=== PATIENT | female | born 1970 | race Caucasian/White ===

== ENCOUNTER 2018-08-28 22:29 | Emergency (ER) | payer MEDICAID, OTHER ==
[2018-08-28 22:36] VITALS: BP 116/52
[2018-08-28] MEDS ORDERED: predniSONE 20 MG TABLET PO STA (23:08)
--- NOTE | 2018-08-28 23:14 | ED Physician Documentation ---
PD HPI SKIN - Stated complaint Stated Complaint: RASH - Chief complaint Chief Complaint: Wound - History obtained from History obtained from: Patient - History of Present Illness Timing - onset: How many weeks ago (1) Timing - duration: Weeks (1) Timing - details: Gradual onset, Still present Location: Bodywide Quality / character: Itchy, Discolored, Raised Improved by: Benadryl Associated symptoms: No: Fever, Myalgias, Joint pain, Headache, Facial swelling, Dyspnea, N/V/D Contributing factors: Other (exposed to scabies) Similar symptoms before: Diagnosis (scabies) Recently seen: Clinic - Additional information Additional information: 48-year-old female who contracted scabies from a homeless family that they allowed to camp in their yard has been treated with permethrin and despite the treatment she has had progression of the inflammatory response and she is quite uncomfortable with this. She treated 3 days ago and has had progression of symptoms.She does state that the antihistamine she is taking does appear to help some. Review of Systems Constitutional: denies: Fever Eyes: denies: Decreased vision Ears: denies: Ear pain Nose: denies: Congestion Throat: denies: Sore throat Cardiac: denies: Chest pain / pressure, Palpitations Respiratory: denies: Dyspnea, Cough GI: denies: Abdominal Pain, Nausea, Vomiting : denies: Dysuria, Frequency Skin: reports: Rash Musculoskeletal: denies: Neck pain, Back pain, Extremity pain PD PAST MEDICAL HISTORY - Present Medications Home Medications: Ambulatory Orders Medication Instructions Recorded Confirmed Ivermectin 15 mg PO ONCE #5 tablet 08/28/18 Topical Cream 08/28/18 predniSONE [Deltasone] 10 mg PO ONCE #26 tablet 08/28/18 - Allergies Allergies/Adverse Reactions: Allergies Allergy/AdvReac Type Severity Reaction Status Date / Time No Known Drug Allergies Allergy Verified 08/28/18 22:35 PD ED PE NORMAL - Vitals Vital signs reviewed: Yes (normal ) - General General: Alert and oriented X 3, No acute distress - HEENT HEENT: Atraumatic, PERRL, EOMI - Neck Neck: Supple, no meningeal sign - Respiratory Respiratory: No respiratory distress - Derm Derm: Normal color, Warm and dry, Other (There is a fine erthematous rash very non-discript but consistent with scabies infestation that is present over the back chest and extremities. It appears to spare the face. There is excessive confluent erythema to the anterior chest up to the neck. 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 She is administered prednisone we will place her on a course of prednisone and give her a dose of ivermectin. Her rash does appear consistent with scabies. Departure - Departure Disposition: 01 Home, Self Care Clinical Impression: Scabies Instructions: ED Scabies Follow-Up: Your, doctor [Other] Prescriptions: Ivermectin 15 mg PO ONCE #5 tablet predniSONE [Deltasone] 10 mg PO ONCE #26 tablet Discharge Date/Time: 08/28/18 23:23
== END 2018-08-28 23:23 | disposition home or self-care (01) ==
LOC: ED 22:29
DX: B86 Scabies (principal)
CPT/HCPCS: 99283; 99284; J7512

== ENCOUNTER 2019-04-13 10:57 | Emergency (ER) | payer OTHER ==
[2019-04-13 11:05] VITALS: BP 113/77
--- NOTE | 2019-04-13 12:24 | XRAY Report ---
Reason: shoulder inj Procedure Date: 04/13/2019 Accession Number: [id number] / [id number] Procedure: XR - Shoulder 3 View RT CPT Code: Final Report FULL RESULT: EXAM: RIGHT SHOULDER RADIOGRAPHY EXAM DATE: 04/13/2019 12:17 PM. CLINICAL HISTORY: Shoulder inj. COMPARISON: None. TECHNIQUE: 3 views. FINDINGS: Bones: Normal. No fracture or bone lesion. Joints: The glenohumeral and acromioclavicular joints are normal in alignment. Moderate AC joint with osteophytes. Soft tissues: The visualized hemithorax is unremarkable. No soft tissue swelling. IMPRESSION: 1. No evidence for acute fracture or dislocation of the right shoulder. 2. Moderate AC joint arthritis. RADIA
[2019-04-13] MEDS ORDERED: predniSONE 20 MG TABLET PO STA (12:43)
[2019-04-13] MEDS ORDERED: CYCLOBENZAPRINE 10 MG TABLET PO STA (12:43)
--- NOTE | 2019-04-13 12:45 | ED Physician Documentation ---
PD HPI UPPER EXT INJURY - Stated complaint Stated Complaint: R SHOULDER PX - Chief complaint Chief Complaint: Ext Problem - History obtained from History obtained from: Patient (This is a 49-year-old woman without significant past medical history who about a week ago started to develop some right-sided shoulder and neck pain. Over the last few days it is gotten worse. There is no specific motion that makes it worse but even going over bumps in the car makes it worse. She denies any specific injury. Her is a chiropractor who tried to adjust her which was not helpful. She is also had some numbness towards the ulnar side of the hand. No history of radiculopathy. No fevers or chills. No weakness. The pain radiates from the shoulder down into the tricep area and even the forearm dorsally.) Review of Systems Constitutional: reports: Reviewed and negative Cardiac: reports: Reviewed and negative Respiratory: reports: Reviewed and negative PD PAST MEDICAL HISTORY - Past Surgical History Past Surgical History: No - Present Medications Home Medications: Ambulatory Orders Medication Instructions Recorded Confirmed Ivermectin 15 mg PO ONCE #5 tablet 08/28/18 Topical Cream 08/28/18 predniSONE [Deltasone] 10 mg PO ONCE #26 tablet 08/28/18 Cyclobenzaprine [Flexeril] 10 mg PO TID PRN #20 tablet 04/13/19 predniSONE [Deltasone] 20 mg PO [id number] #21 tab 04/13/19 - Allergies Allergies/Adverse Reactions: Allergies Allergy/AdvReac Type Severity Reaction Status Date / Time No Known Drug Allergies Allergy Verified 08/28/18 22:35 - Social History Does the pt smoke?: No Smoking Status: Never smoker Does the pt drink ETOH?: Yes Does the pt have substance abuse?: No - Immunizations Immunizations are current?: No Immunizations: TDAP >10years/unknown - POLST Patient has POLST: No PD ED PE NORMAL - Vitals Vital signs reviewed: Yes - General General: Alert and oriented X 3, No acute distress - Neck Neck: Supple, no meningeal sign, No bony TTP - Extremities Extremities: Other (The shoulder and neck are nontender. She has some limited range of motion of the shoulder only able to abduct to about 90 degrees no further. She has mildly decreased interosseous strength on the right compared to the left. Otherwise washer blanket strength, flexion extension at the wrist and thumb extension are symmetric.) - Neuro Neuro: Alert and oriented X 3, Normal speech Results - Vitals Vitals: Vital Signs - 24 hr 04/13/19 11:03 Temperature 36.9 C Heart Rate 65 Respiratory 18 Rate Blood Pressure 113/77 O2 Saturation 98 Oxygen O2 Source Room air PD MEDICAL DECISION MAKING - ED course ED course: This is a 49-year-old woman who has what appears to be a cervical radiculopathy causing shoulder pain. 3 views of the right shoulder x-ray interpreted contemporaneously by me shows no acute disease and some AC joint arthritis which I do not think is causative at this juncture. Departure - Departure Disposition: 01 Home, Self Care Clinical Impression: Cervical radiculopathy Condition: Good Record reviewed to determine appropriate education?: Yes Instructions: ED Cervical Radiculopathy Prescriptions: Cyclobenzaprine [Flexeril] 10 mg PO TID PRN #20 tablet PRN Reason: Spasms predniSONE [Deltasone] 20 mg PO [id number] #21 tab Comments: Return for new or worsening symptoms. Follow-up with your doctor early next week for reevaluation
== END 2019-04-13 12:55 | disposition home or self-care (01) ==
LOC: ED 10:57
DX: M54.12 Radiculopathy, cervical region (principal)
CPT/HCPCS: 73030; 99283; A9270; J7512

== ENCOUNTER 2019-04-20 09:39 | Outpatient (CLI) | payer OTHER | END 2019-04-20 09:40 | disposition EMS.NT | LOC: EMS 09:39 | PROVIDERS: ATTEND Surgery | DX: M54.9 Dorsalgia, unspecified (principal); M25.511 Pain in right shoulder ==

== ENCOUNTER 2019-04-20 10:31 | Emergency (ER) | payer OTHER ==
--- NOTE | 2019-04-20 12:04 | ED Physician Documentation ---
PD HPI BACK PAIN - Stated complaint Stated Complaint: RT NECK/ARM PX & NUMBNESS - Chief complaint Chief Complaint: Back Pain - History obtained from History obtained from: Patient, Family () - History of Present Illness Timing - onset: Other (This 49-year-old female returns to the ER today after being seen last week for the same.She has continued right-sided shoulder and neck pain that developed about a week and a half ago while she states that she started swimming with her children and was taking some garbage out to the trash can when the pain developed she was seen in the ED last week and given Flexeril and a course of tapering prednisone she has taken the prednisone but has not taken the Flexeril faithfully.She did not denies any specific motion or movement makes the pain worse she was doing okay until this morning she woke up and the pain was severe to the point that she did not go to her primary care appointment but instead took a Flexeril and take some ibuprofen today which seems now to make the pain a little bit better.She continues to complain of some numbness toward the ulnar side of her hand digits 3 4 and 5 she has no history of radiculopathy she denies fevers chills weakness pain continues to radiate from her scapular area down into her triceps area.) Review of Systems Constitutional: reports: Reviewed and negative. denies: Chills Cardiac: reports: Reviewed and negative Respiratory: reports: Reviewed and negative Musculoskeletal: reports: Neck pain PD PAST MEDICAL HISTORY - Past Surgical History Past Surgical History: No - Present Medications Home Medications: Ambulatory Orders Medication Instructions Recorded Confirmed predniSONE [Deltasone] 10 mg PO ONCE #26 tablet 08/28/18 Cyclobenzaprine [Flexeril] 10 mg PO TID PRN #20 tablet 04/13/19 predniSONE [Deltasone] 20 mg PO [id number] #21 tab 04/13/19 - Allergies Allergies/Adverse Reactions: Allergies Allergy/AdvReac Type Severity Reaction Status Date / Time No Known Drug Allergies Allergy Verified 04/20/19 10:51 - Social History Does the pt smoke?: No Smoking Status: Never smoker Does the pt drink ETOH?: Yes Does the pt have substance abuse?: No - Immunizations Immunizations are current?: No Immunizations: TDAP >10years/unknown - POLST Patient has POLST: No PD ED PE NORMAL - General General: Alert and oriented X 3 - Extremities Extremities: Other (Patient has some tender this to the right rhomboid right trapezium area without radiation down into the arm she has limited range of motion for flexion to about 90degrees mildly decreased strength in the right,with increasing pain she stops movement 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 She seems to be improving after taking her Flexeril and Advil this morning.) Departure - Departure Disposition: 01 Home, Self Care Clinical Impression: Pain, Cervical radiculopathy Condition: Good Plan of Treatment: patient to follow up with her PCP this week as previously discussed for reevaluation. Discussed with your PCP about MRI of the cervical thoracic region. She is encouraged to use NSAID's (Advil/ aleve/ IBP) daily, and use the flexeril at bedtime. Instructions: ED Neck Back Pain General Discharge Date/Time: 04/20/19 12:36
[2019-04-20 12:35] VITALS: BP 114/62
== END 2019-04-20 12:36 | disposition home or self-care (01) ==
LOC: ED 10:31
DX: M54.12 Radiculopathy, cervical region (principal)
CPT/HCPCS: 99281; 99283